=== PATIENT | female | born 1950 | race Caucasian/White ===

== ENCOUNTER 2019-09-22 13:08 | Observation (INO) | payer MEDICARE, MEDICAID ==
--- NOTE | 2019-09-22 13:38 | EDM.PDOC ---
ED HPI GENERAL MEDICAL PROBLEM - General Chief Complaint: General Stated Complaint: HIGH BLOOD SUGAR Time Seen by Provider: 09/22/19 13:20 Source of Information: Reports: Patient History Limitations: Reports: No Limitations - History of Present Illness INITIAL COMMENTS - FREE TEXT/NARRATIVE: Nigel comes into [facility] ED from [facility] after detection of elevated nonFBS 573 mg%. This was taken within an hour of eating after she had developed some shaking while smoking outside. There is a hx of polydipsia and polyuria over the past 4-5 months, and tingling in the extremities over the past month. Of interest, a FBS of 218 mg% was detected on a routine blood draw, but no intervention was determined. ED ROS GENERAL - Review of Systems Review Of Systems: Comprehensive ROS is negative, except as noted in HPI. ED EXAM, GENERAL - Physical Exam Exam: See Below Exam Limited By: No Limitations General Appearance: Alert, WD/WN, No Apparent Distress, Anxious, Obese Eye Exam: Bilateral Eye: EOMI, Normal Inspection, PERRL Ears: Normal External Exam Nose: Normal Inspection Throat/Mouth: Normal Inspection, Other (edentulous) Head: Normocephalic Neck: Normal Inspection, Supple, Non-Tender, Full Range of Motion Respiratory/Chest: No Respiratory Distress, No Accessory Muscle Use, Decreased Breath Sounds, Crackles, Wheezing, Prolonged Expiration Cardiovascular: Regular Rate, Rhythm, No Edema, No Murmur GI/Abdominal: Normal Bowel Sounds, Soft, Non-Tender, No Organomegaly, No Distention, No Mass (Female) Exam: Deferred Rectal (Female) Exam: Deferred Back Exam: Decreased Range of Motion Extremities: Normal Inspection, Normal Range of Motion, Non-Tender Neurological: Alert, Oriented, CN II-XII Intact, No Motor/Sensory Deficits Psychiatric: Normal Affect, Anxious Skin Exam: Warm, Dry, Intact, Normal Color, No Rash Lymphatic: No Adenopathy Course - Vital Signs Text/Narrative:: Following assessment, screening labs noted: CBC baseline; CMP noting BS 638 mg% , HgbA1c 8.8%, UA noting neg ketones, Glu 4+. Case was discussed with hospitalist, and she will be admitted to Observation for medical managemet. Last Recorded V/S: Last Vital Signs Temp 36.6 C 09/22/19 13:45 Pulse 100 09/22/19 13:45 Resp 18 09/22/19 13:45 BP 126/54 L 09/22/19 13:45 Pulse Ox 100 09/22/19 13:45 - Orders/Labs/Meds Orders: Active Orders 24 hr Category Date Time Status Blood Glucose Check, Bedside [RC] ONETIME Care 09/22/19 14:48 Active Labs: Laboratory Tests 09/22/19 09/22/19 09/22/19 Range/Units 13:45 13:45 13:45 WBC 7.9 (4.5-12.0) X10-3/uL RBC 4.40 (3.23-5.20) x10(6)uL Hgb 13.8 (11.5-15.5) g/dL Hct 41.9 (30.0-51.3) % MCV 95.2 (80-96) fL MCH 31.3 (27.7-33.6) pg MCHC 32.9 (32.2-35.4) g/dL RDW 11.7 (11.5-15.5) % Plt Count 191 (125-369) X10(3)uL MPV 9.1 (7.4-10.4) fL Neut % (Auto) 73.6 (46-82) % Lymph % (Auto) 18.1 (13-37) % [place] % (Auto) 5.9 (4-12) % Eos % (Auto) 1 (1.0-5.0) % Baso % (Auto) 1 (0-2) % Neut # (Auto) 5.8 (1.6-8.3) # Lymph # (Auto) 1.4 (0.6-5.0) # [place] # (Auto) 0.5 (0.0-1.3) # Eos # (Auto) 0.1 (0.0-0.8) # Baso # (Auto) 0.1 (0.0-0.2) # Sodium 130 L (135-145) mmol/L Potassium 4.7 (3.5-5.3) mmol/L Chloride 94 L (100-110) mmol/L Carbon Dioxide 28 (21-32) mmol/L BUN 22 H (7-18) mg/dL Creatinine 1.1 H (0.55-1.02) mg/dL Est Cr Clr Drug Dosing 41.62 mL/min Estimated GFR (MDRD) 50 L (>60) BUN/Creatinine Ratio 20.0 (9-20) Glucose 638 H* (80-116) mg/dL Hemoglobin A1c 8.8 H (<5.7) % Calcium 9.6 (8.6-10.2) mg/dL Total Bilirubin 0.4 (0.1-1.3) mg/dL AST 15 (5-25) IU/L ALT 24 (12-36) U/L Alkaline Phosphatase 170 H (56-112) IU/L Total Protein 7.9 (6.0-8.0) g/dL Albumin 3.6 (3.2-4.6) g/dL Globulin 4.3 g/dL Albumin/Globulin Ratio 0.8 Urine Color (YELLOW) Urine Appearance (CLEAR) Urine pH (5.0-6.5) Ur Specific [place] (1.010-1.025) Urine Protein (NEGATIVE) mg/dL Urine Glucose (UA) (NORMAL) mg/dL Urine Ketones (NEGATIVE) mg/dL Urine Occult Blood (NEGATIVE) Urine Nitrite (NEGATIVE) Urine Bilirubin (NEGATIVE) Urine Urobilinogen (NEGATIVE) mg/dL Ur Leukocyte Esterase (NEGATIVE) Urine RBC (0-5) Urine WBC (0-5) Ur Squamous Epith Cells (NS,R,O) Urine Bacteria (NS) 09/22/19 Range/Units 14:22 WBC (4.5-12.0) X10-3/uL RBC (3.23-5.20) x10(6)uL Hgb (11.5-15.5) g/dL Hct (30.0-51.3) % MCV (80-96) fL MCH (27.7-33.6) pg MCHC (32.2-35.4) g/dL RDW (11.5-15.5) % Plt Count (125-369) X10(3)uL MPV (7.4-10.4) fL Neut % (Auto) (46-82) % Lymph % (Auto) (13-37) % [place] % (Auto) (4-12) % Eos % (Auto) (1.0-5.0) % Baso % (Auto) (0-2) % Neut # (Auto) (1.6-8.3) # Lymph # (Auto) (0.6-5.0) # [place] # (Auto) (0.0-1.3) # Eos # (Auto) (0.0-0.8) # Baso # (Auto) (0.0-0.2) # Sodium (135-145) mmol/L Potassium (3.5-5.3) mmol/L Chloride (100-110) mmol/L Carbon Dioxide (21-32) mmol/L BUN (7-18) mg/dL Creatinine (0.55-1.02) mg/dL Est Cr Clr Drug Dosing mL/min Estimated GFR (MDRD) (>60) BUN/Creatinine Ratio (9-20) Glucose (80-116) mg/dL Hemoglobin A1c (<5.7) % Calcium (8.6-10.2) mg/dL Total Bilirubin (0.1-1.3) mg/dL AST (5-25) IU/L ALT (12-36) U/L Alkaline Phosphatase (56-112) IU/L Total Protein (6.0-8.0) g/dL Albumin (3.2-4.6) g/dL Globulin g/dL Albumin/Globulin Ratio Urine Color Yellow (YELLOW) Urine Appearance Clear (CLEAR) Urine pH 5.0 (5.0-6.5) Ur Specific [place] 1.010 (1.010-1.025) Urine Protein Negative (NEGATIVE) mg/dL Urine Glucose (UA) >1000 H (NORMAL) mg/dL Urine Ketones Negative (NEGATIVE) mg/dL Urine Occult Blood Negative (NEGATIVE) Urine Nitrite Negative (NEGATIVE) Urine Bilirubin Negative (NEGATIVE) Urine Urobilinogen Normal (NEGATIVE) mg/dL Ur Leukocyte Esterase Negative (NEGATIVE) Urine RBC 0-5 (0-5) Urine WBC 0-5 (0-5) Ur Squamous Epith Cells Occasional (NS,R,O) Urine Bacteria Rare H (NS) Departure - Departure Time of Disposition: 14:55 Disposition: Refer to Observation Condition: Fair Clinical Impression: Type 2 diabetes mellitus Qualifiers: Diabetes mellitus long goods drier insulin use: without long goods drier use Diabetes mellitus complication status: with hyperglycemia Qualified Code(s): E11.65 - Type 2 diabetes mellitus with hyperglycemia - Discharge Information *PRESCRIPTION DRUG MONITORING PROGRAM REVIEWED*: Not Applicable *COPY OF PRESCRIPTION DRUG MONITORING REPORT IN PATIENT [place]: Not Applicable Referrals: Kirstin,Benita, PA-C [Primary Care Provider] - Forms: ED Department Discharge Sepsis Event Note - Focused Exam Vital Signs: Vital Signs Temp Pulse Resp BP Pulse Ox 09/22/19 13:45 36.6 C 100 18 126/54 L 100 Date Exam was Performed: 09/22/19 Time Exam was Performed: 14:52 - Problem List & Annotations (1) Type 2 diabetes mellitus SNOMED Code(s): 22778345 Code(s): E11.9 - TYPE 2 DIABETES MELLITUS WITHOUT COMPLICATIONS Status: Acute Current Visit: Yes Annotation/Comment:: Admit to Observation, hospitalist to see. Qualifiers: Diabetes mellitus alf insulin use: without alf use Diabetes mellitus complication status: with hyperglycemia Qualified Code(s): E11.65 - Type 2 diabetes mellitus with hyperglycemia - Problem List Review Problem List Initiated/Reviewed/Updated: Yes - My Orders Last 24 Hours: My Active Orders 09/22/19 14:48 Blood Glucose Check, Bedside [RC] ONETIME - Assessment/Plan Last 24 Hours: My Active Orders 09/22/19 14:48 Blood Glucose Check, Bedside [RC] ONETIME Plan: Follow up with PCP.
[2019-09-22 14:07] LABS: HEMOGLOBIN A1C 8.8 % (<5.7)
[2019-09-22] MEDS ORDERED: Sodium Chloride 0.9% 1,000 ML IV SCH ×2 (15:00→20:00)
[2019-09-22] MEDS ORDERED: Insulin Regular, Human 100 Units/ML 3 ML Vial IV ONE (15:02)
[2019-09-22] MEDS: Sodium Chloride 0.9% 10 ML Syringe FLUSH PRN ×2 (16:00→16:13)
--- NOTE | 2019-09-22 16:14 | CR ---
INDICATION: COPD. CHEST, ONE VIEW: An AP upright view of the chest was obtained 09/22/19 and compared with 02/02/19 [facility] Image. Fusion is again noted at the thoracolumbar spine with rods and pedicle screws appearing intact. The heart appeared normal in size. The aorta is tortuous with calcification in the arch. No consolidating pneumonia or effusion was seen. Evidence of exogenous obesity is noted. Mild degree of flattening of the diaphragm on the left is noted. IMPRESSION: No acute process. MTDD
[2019-09-22] MEDS: Albuterol/Ipratropium 3.0-0.5 MG/3 ML Neb Soln NEB SCH ×2 (16:25→21:57)
[2019-09-22] MEDS ORDERED: LOPERAMIDE HCL 2 MG PO PRN (17:11)
[2019-09-22] MEDS ORDERED: MAGNESIUM HYDROXIDE 400 MG/5 ML PO PRN (17:11)
[2019-09-22] MEDS ORDERED: [UNRECOGNIZED DRUG - OTHER] PO PRN (17:11)
[2019-09-22] MEDS ORDERED: GUAIFENESIN 100 MG/5 ML PO PRN (17:11)
[2019-09-22] MEDS ORDERED: Acetaminophen 325 MG Tab PO PRN (17:11)
[2019-09-22] MEDS ORDERED: BISACODYL 10 MG RECTAL PRN (17:11)
[2019-09-22] MEDS ORDERED: TRIAMCINOLONE ACETONIDE 0.1% TOP PRN (17:11)
[2019-09-22] MEDS ORDERED: Albuterol 8 GM Inhaler*PT OWN MED INH PRN (17:11)
--- NOTE | 2019-09-22 17:27 | PCM.HP.2 ---
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 She has some labs then over week ago and her blood sugars 285. This the first time her sugars ever been up and nobody called her back to follow-up. She was getting an appointment with her nurse practitioner but an upcoming here. They checked her blood sugar was flexed over 680 and she was sent here. She denies fevers, chills, chest pain. She is a smoker and she is she has some wheezing some coughing. 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 Right Lower Leg Pain Score (Numeric/FACES): 8 - Related Data Home Medications: Home Meds Acetaminophen 1,000 mg PO TID 09/22/19 [History] Acetaminophen 650 mg PO Q4H PRN 09/22/19 [History] Albuterol Sulfate [Albuterol Sulfate Hfa] 1 puff IH Q4H PRN 09/22/19 [History] Aspirin 81 mg PO DAILY 09/22/19 [History] Baclofen 15 mg PO TID 09/22/19 [History] Bisacodyl [Laxative Suppository] 10 mg RC Q3D PRN 09/22/19 [History] Celecoxib [CeleBREX] 100 mg PO DAILY 09/22/19 [History] Cholecalciferol (Vitamin D3) [Vitamin D3] 2,000 units PO DAILY 09/22/19 [History ] DULoxetine [Cymbalta] 60 mg PO BID 09/22/19 [History] Doxycycline Hyclate 100 mg PO BID 09/22/19 [History] Fluticasone Propionate [Flonase Allergy Relief] 1 spray NASBOTH BID 09/22/19 [ History] Gabapentin [Neurontin] 800 mg PO TID 09/22/19 [History] Loperamide HCl [Imodium A-D] 2 mg PO ASDIRECTED PRN 09/22/19 [History] Losartan [Cozaar] 100 mg PO DAILY 09/22/19 [History] Mag Hydrox/Aluminum Hyd/Simeth [Mylanta Maximum Strength Liq] 10 ml PO QID PRN 09/22/19 [History] Magnesium Hydroxide [Milk of Magnesia] 30 ml PO DAILY PRN 09/22/19 [History] Mv-Mn/Folic AC/Calcium/Vit K1 [Women's 50 Plus Multivit Tab] 1 each PO DAILY 07/08 [History] Nystatin 1 applic TOP TID PRN 09/22/19 [History] Omeprazole 20 mg PO 1800 09/22/19 [History] Sennosides/Docusate Sodium [Senna-S] 1 tab PO BID 09/22/19 [History] Sofosbuvir/Velpatasvir [Sofosbuvir-Velpatasvir 400-100] 1 each PO DAILY [History] Triamcinolone Acetonide [Triamcinolone Acetonide 0.1% Crm] 1 applic TOP TID PRN 09/22/19 [History] amLODIPine Besylate [Amlodipine Besylate] 10 mg PO DAILY 09/22/19 [History] cloNIDine HCL [Clonidine HCl] 0.2 mg PO BID 09/22/19 [History] guaiFENesin 200 mg PO Q4H PRN 09/22/19 [History] Past Medical History Other HEENT History: Age related cataracts Cardiovascular History: Reports: Hypertension Respiratory History: Reports: Asthma Gastrointestinal History: Reports: Hepatitis Other Gastrointestinal History: Hep C Genitourinary History: Reports: Other (See Below) Other Genitourinary History: Frequency Musculoskeletal History: Reports: Other (See Below) Other Musculoskeletal History: SPINAL CORD INJURY 2018 Dermatologic History: Reports: Other (See Below) Other Dermatologic History: States got 2 degree sunburn 4 weeks ago - Infectious Disease History Infectious Disease History: Reports: Shingles Social & Family History - Family History Family Medical History: Noncontributory - Tobacco Use Smoking Status *Q: Current Every Day Smoker Years of Tobacco use: 50 Packs/Tins Daily: 1 Second Hand Smoke Exposure: Yes - Caffeine Use Caffeine Use: Reports: Coffee, Soda - Recreational Drug Use Recreational Drug Use: No H&P Review of Systems - Review of Systems: Review Of Systems: See Below General: Reports: No Symptoms HEENT: Reports: Visual Changes Pulmonary: Reports: No Symptoms Cardiovascular: Reports: No Symptoms Gastrointestinal: Reports: No Symptoms Genitourinary: Reports: No Symptoms Musculoskeletal: Reports: Other (No acute symptoms) Skin: Reports: No Symptoms Psychiatric: Reports: No Symptoms Neurological: Reports: Numbness Hematologic/Lymphatic: Reports: No Symptoms Immunologic: Reports: No Symptoms Exam - Exam Exam: See Below - Vital Signs Vital Signs: Last Vital Signs Temp 98.3 F 09/22/19 15:40 Pulse 97 09/22/19 15:40 Resp 20 09/22/19 15:40 BP 173/87 H 09/22/19 15:40 Pulse Ox 97 09/22/19 15:40 Weight: 221 lb 9.6 oz - Exam General: Alert, Oriented, Cooperative HEENT: Hearing Intact, Mucosa Moist & Blyn, TMs Clear Neck: Supple, Trachea Midline Lungs: Clear to Auscultation, Normal Respiratory Effort Cardiovascular: Regular Rate, Regular Rhythm, Normal S1 GI/Abdominal Exam: Normal Bowel Sounds, Non-Tender, No Distention Extremities: No Pedal Edema Neuro Extensive - Mental Status: Alert, Oriented x3, Normal Mood/Affect, Normal Cognition, Memory Intact Neuro Extensive - Motor, Sensory, Reflexes: No: Normal Gait Psychiatric: Alert, Normal Affect, Normal Mood - Patient Data Lab Results Last 24 hrs: Laboratory Results - last 24 hr 09/22/19 09/22/19 09/22/19 Range/Units 13:45 13:45 13:45 WBC 7.9 (4.5-12.0) X10-3/uL RBC 4.40 (3.23-5.20) x10(6)uL Hgb 13.8 (11.5-15.5) g/dL Hct 41.9 (30.0-51.3) % MCV 95.2 (80-96) fL MCH 31.3 (27.7-33.6) pg MCHC 32.9 (32.2-35.4) g/dL RDW 11.7 (11.5-15.5) % Plt Count 191 (125-369) X10(3)uL MPV 9.1 (7.4-10.4) fL Neut % (Auto) 73.6 (46-82) % Lymph % (Auto) 18.1 (13-37) % [place] % (Auto) 5.9 (4-12) % Eos % (Auto) 1 (1.0-5.0) % Baso % (Auto) 1 (0-2) % Neut # (Auto) 5.8 (1.6-8.3) # Lymph # (Auto) 1.4 (0.6-5.0) # [place] # (Auto) 0.5 (0.0-1.3) # Eos # (Auto) 0.1 (0.0-0.8) # Baso # (Auto) 0.1 (0.0-0.2) # Sodium 130 L (135-145) mmol/L Potassium 4.7 (3.5-5.3) mmol/L Chloride 94 L (100-110) mmol/L Carbon Dioxide 28 (21-32) mmol/L BUN 22 H (7-18) mg/dL Creatinine 1.1 H (0.55-1.02) mg/dL Est Cr Clr Drug Dosing 41.62 mL/min Estimated GFR (MDRD) 50 L (>60) BUN/Creatinine Ratio 20.0 (9-20) Glucose 638 H* (80-116) mg/dL Hemoglobin A1c 8.8 H (<5.7) % Calcium 9.6 (8.6-10.2) mg/dL Total Bilirubin 0.4 (0.1-1.3) mg/dL AST 15 (5-25) IU/L ALT 24 (12-36) U/L Alkaline Phosphatase 170 H (56-112) IU/L Total Protein 7.9 (6.0-8.0) g/dL Albumin 3.6 (3.2-4.6) g/dL Globulin 4.3 g/dL Albumin/Globulin Ratio 0.8 Urine Color (YELLOW) Urine Appearance (CLEAR) Urine pH (5.0-6.5) Ur Specific Bells (1.010-1.025) Urine Protein (NEGATIVE) mg/dL Urine Glucose (UA) (NORMAL) mg/dL Urine Ketones (NEGATIVE) mg/dL Urine Occult Blood (NEGATIVE) Urine Nitrite (NEGATIVE) Urine Bilirubin (NEGATIVE) Urine Urobilinogen (NEGATIVE) mg/dL Ur Leukocyte Esterase (NEGATIVE) Urine RBC (0-5) Urine WBC (0-5) Ur Squamous Epith Cells (NS,R,O) Urine Bacteria (NS) 09/22/19 Range/Units 14:22 WBC (4.5-12.0) X10-3/uL RBC (3.23-5.20) x10(6)uL Hgb (11.5-15.5) g/dL Hct (30.0-51.3) % MCV (80-96) fL MCH (27.7-33.6) pg MCHC (32.2-35.4) g/dL RDW (11.5-15.5) % Plt Count (125-369) X10(3)uL MPV (7.4-10.4) fL Neut % (Auto) (46-82) % Lymph % (Auto) (13-37) % [place] % (Auto) (4-12) % Eos % (Auto) (1.0-5.0) % Baso % (Auto) (0-2) % Neut # (Auto) (1.6-8.3) # Lymph # (Auto) (0.6-5.0) # [place] # (Auto) (0.0-1.3) # Eos # (Auto) (0.0-0.8) # Baso # (Auto) (0.0-0.2) # Sodium (135-145) mmol/L Potassium (3.5-5.3) mmol/L Chloride (100-110) mmol/L Carbon Dioxide (21-32) mmol/L BUN (7-18) mg/dL Creatinine (0.55-1.02) mg/dL Est Cr Clr Drug Dosing mL/min Estimated GFR (MDRD) (>60) BUN/Creatinine Ratio (9-20) Glucose (80-116) mg/dL Hemoglobin A1c (<5.7) % Calcium (8.6-10.2) mg/dL Total Bilirubin (0.1-1.3) mg/dL AST (5-25) IU/L ALT (12-36) U/L Alkaline Phosphatase (56-112) IU/L Total Protein (6.0-8.0) g/dL Albumin (3.2-4.6) g/dL Globulin g/dL Albumin/Globulin Ratio Urine Color Yellow (YELLOW) Urine Appearance Clear (CLEAR) Urine pH 5.0 (5.0-6.5) Ur Specific Bells 1.010 (1.010-1.025) Urine Protein Negative (NEGATIVE) mg/dL Urine Glucose (UA) >1000 H (NORMAL) mg/dL Urine Ketones Negative (NEGATIVE) mg/dL Urine Occult Blood Negative (NEGATIVE) Urine Nitrite Negative (NEGATIVE) Urine Bilirubin Negative (NEGATIVE) Urine Urobilinogen Normal (NEGATIVE) mg/dL Ur Leukocyte Esterase Negative (NEGATIVE) Urine RBC 0-5 (0-5) Urine WBC 0-5 (0-5) Ur Squamous Epith Cells Occasional (NS,R,O) Urine Bacteria Rare H (NS) Result Diagrams: 09/22/19 13:45 09/22/19 13:45 Sepsis Event Note - Evaluation Sepsis Screening Result: No Definite Risk - Focused Exam Vital Signs: Vital Signs Temp Pulse Resp BP Pulse Ox Pulse Ox 09/22/19 15:40 98.3 F 97 20 173/87 H 97 09/22/19 14:58 100 09/22/19 14:52 97.9 F 100 18 126/54 L 100 09/22/19 13:45 97.9 F 100 18 126/54 L 100 Date Exam was Performed: 09/22/19 Time Exam was Performed: 17:21 - Problem List (1) Hyperglycemia SNOMED Code(s): 20371600 ICD Code: R73.9 - HYPERGLYCEMIA, UNSPECIFIED Status: Acute Current Visit : Yes (2) Type 2 diabetes mellitus SNOMED Code(s): 53710077 ICD Code: E11.9 - TYPE 2 DIABETES MELLITUS WITHOUT COMPLICATIONS Status: Acute Current Visit: Yes Problem Details: Admit to Observation, hospitalist to see. Qualifiers: Diabetes mellitus welding specialist insulin use: without welding specialist use Diabetes mellitus complication status: with hyperglycemia Qualified Code(s): E11.65 - Type 2 diabetes mellitus with hyperglycemia (3) Smoking SNOMED Code(s): 04356577 ICD Code: F17.200 - NICOTINE DEPENDENCE, UNSPECIFIED, UNCOMPLICATED Status : Acute Current Visit: Yes (4) Bronchitis SNOMED Code(s): 25475696 ICD Code: J40 - BRONCHITIS, NOT SPECIFIED ACUTE OR CHRONIC Status: Acute Current Visit: Yes (5) COPD (chronic obstructive pulmonary disease) SNOMED Code(s): 93801259 ICD Code: J44.9 - CHRONIC OBSTRUCTIVE PULMONARY DISEASE, UNSPECIFIED Status : Acute Current Visit: Yes (6) Paralysis SNOMED Code(s): 99204211 ICD Code: G83.9 - PARALYTIC SYNDROME, UNSPECIFIED Status: Acute Current Visit: Yes (7) Palliative care status SNOMED Code(s): 870619027 ICD Code: Z51.5 - ENCOUNTER FOR PALLIATIVE CARE Status: Acute Current Visit: Yes Problem List Initiated/Reviewed/Updated: Yes Orders Last 24hrs: Active Orders 24 hr Category Date Time Status Patient Status [ADT] Routine ADT 09/22/19 14:58 Active Bedrest Bathroom Privileges [RC] ASDIRECTED Care 09/22/19 14:58 Active Blood Glucose Check, Bedside [RC] ONETIME Care 09/22/19 14:48 Active Blood Glucose Check, Bedside [RC] QIDACANDBED Care 09/22/19 14:58 Active Height and Weight [RC] UPON Care 09/22/19 14:58 Active Intake and Output [RC] QSHIFT Care 09/22/19 14:59 Active May Shower [RC] ASDIRECTED Care 09/22/19 14:58 Active Oxygen Therapy [RC] PRN Care 09/22/19 14:58 Active RT Aerosol Therapy [RC] ASDIRECTED Care 09/22/19 15:01 Active Up to Chair [RC] ASDIRECTED Care 09/22/19 14:58 Active VTE/DVT Education [RC] Per Unit Routine Care 09/22/19 14:58 Active Vital Signs [RC] Q4H Care 09/22/19 14:58 Active Consult to Primary Mill Roller [CONS] Routine Cons 09/22/19 14:58 Active Consistent Carbohydrate Diet [DIET] Diet 09/22/19 Dinner Ordered Acetaminophen [Tylenol Extra Strength] Med 09/22/19 21:00 Ordered 1,000 mg PO TID Acetaminophen [Tylenol] Med 09/22/19 17:11 Ordered 650 mg PO Q4H PRN Albuterol [Ventolin HFA] Med 09/22/19 17:11 Ordered 1 puff INH Q4H PRN Albuterol/Ipratropium [DuoNeb 3.0-0.5 MG/3 ML] Med 09/22/19 16:00 Active 3 ml NEB QIDRT Aspirin Med 09/23/19 09:00 Ordered 81 mg PO DAILY Azithromycin [Zithromax] Med 09/22/19 17:30 Ordered 250 mg PO DAILY Baclofen [Lioresal] Med 09/22/19 21:00 Ordered 15 mg PO TID Celecoxib [CeleBREX] Med 09/23/19 09:00 Ordered 100 mg PO DAILY Cholecalciferol (Vitamin D3) [Vitamin D3] Med 09/23/19 09:00 Ordered 2,000 units PO DAILY DULoxetine [Cymbalta] Med 09/22/19 21:00 Ordered 60 mg PO BID Docusate Sodium/Sennosides [Senna Plus] Med 09/22/19 21:00 Ordered 1 tab PO BID Doxycycline [Vibra-Tabs] Med 09/22/19 21:00 Ordered 100 mg PO BID Enoxaparin [Lovenox] Med 09/22/19 17:15 Ordered 40 mg SUBCUT Q24H Fluticasone Propionate [Flonase Allergy Relief] Med 09/22/19 21:00 Ordered 1 spray NASBOTH BID Gabapentin [Neurontin] Med 09/22/19 21:00 Ordered 800 mg PO TID Insulin Glarg,Human.Rec.Analog [LantUS Solostar] Med 09/22/19 17:30 Ordered 20 units SUBCUT DAILY Insulin Lispro [HumaLOG] Med 09/22/19 18:00 Ordered See Protocol SUBCUT TIDMEALS Loperamide HCl [Imodium A-D] Med 09/22/19 17:11 Ordered 2 mg PO ASDIRECTED PRN Losartan [Cozaar] Med 09/23/19 09:00 Ordered 100 mg PO DAILY Mag Hydrox/Aluminum Hyd/Simeth [Mylanta Maximum Med 09/22/19 17:11 Ordered Strength Liq] 10 ml PO QID PRN Magnesium Hydroxide [Milk of Magnesia] Med 09/22/19 17:11 Ordered 30 ml PO DAILY PRN Mv-Mn/Folic AC/Calcium/Vit K1 [Women's 50 Plus Multivit Med 09/23/19 09:00 Ordered Tab] 1 each PO DAILY Nicotine [Habitrol] Med 09/22/19 17:30 Ordered 21 mg TRDERM DAILY Nystatin [Nystatin] Med 09/22/19 17:11 Ordered 1 applic TOP TID PRN Omeprazole [Omeprazole] Med 09/22/19 18:00 Ordered 20 mg PO 1800 Sodium Chloride 0.9% [Normal Saline] 1,000 ml Med 09/22/19 15:00 Active IV ASDIRECTED Sodium Chloride 0.9% [Saline Flush] Med 09/22/19 14:58 Active 10 ml FLUSH ASDIRECTED PRN Sofosbuvir/Velpatasvir [Sofosbuvir-Velpatasvir 400-100] Med 09/23/19 09:00 Ordered 1 each PO DAILY Triamcinolone Acetonide [Triamcinolone Acetonide 0.1% Med 09/22/19 17:11 Ordered Crm] 1 applic TOP TID PRN amLODIPine [Norvasc] Med 09/23/19 09:00 Ordered 10 mg PO DAILY bisacodyL [Dulcolax] Med 09/22/19 17:11 Ordered 10 mg RECTAL Q3D PRN cloNIDine HCL [Clonidine HCl] Med 09/22/19 21:00 Ordered 0.2 mg PO BID guaiFENesin [Robitussin] Med 09/22/19 17:11 Ordered 200 mg PO Q4H PRN traMADol [Ultram] Med 09/22/19 17:21 Ordered 50 mg PO Q6H PRN Peripheral IV Insertion Adult [OM.PC] Routine Oth 09/22/19 14:58 Ordered Resuscitation Status Routine Resus Stat 09/22/19 14:58 Ordered Medication Orders Acetaminophen (Tylenol) 650 mg PO Q4H PRN PRN Reason: FEVER/PAIN Acetaminophen (Tylenol Extra Strength) 1,000 mg PO TID LUBNA Albuterol (Ventolin Hfa) gm INH Q4H PRN PRN Reason: SHORTNESS OF BREATH Albuterol/Ipratropium (Duoneb 3.0-0.5 Mg/3 Ml) 3 ml NEB QIDRT COUNT INCLUDES THE [facility] Last Admin: 09/22/19 16:25 Dose: 3 ml Amlodipine Besylate (Norvasc) 10 mg PO DAILY COUNT INCLUDES THE [facility] Aspirin (Aspirin) 81 mg PO DAILY COUNT INCLUDES THE [facility] Azithromycin (Zithromax) 250 mg PO DAILY COUNT INCLUDES THE [facility] Stop: 09/27/19 09:01 Baclofen (Lioresal) 15 mg PO TID COUNT INCLUDES THE [facility] Bisacodyl (Dulcolax) 10 mg RECTAL Q3D PRN PRN Reason: Constipation Celecoxib (Celebrex) 100 mg PO DAILY COUNT INCLUDES THE [facility] Doxycycline Hyclate (Vibra-Tabs) 100 mg PO BID COUNT INCLUDES THE [facility] Duloxetine HCl (Cymbalta) 60 mg PO BID COUNT INCLUDES THE [facility] Enoxaparin Sodium (Lovenox) 40 mg SUBCUT Q24H LUBNA Guaifenesin (Robitussin) 200 mg PO Q4H PRN PRN Reason: Cough Sodium Chloride (Normal Saline) 1,000 mls @ 250 mls/hr IV ASDIRECTED LUBNA Last Admin: 09/22/19 16:00 Dose: 250 mls/hr Insulin Glargine (Lantus Solostar) 20 units SUBCUT DAILY COUNT INCLUDES THE [facility] Insulin Human Lispro (Humalog) 0 unit SUBCUT TIDMEALS LUBNA; Protocol Losartan Potassium (Cozaar) 100 mg PO DAILY LUBNA Magnesium Hydroxide (Milk Of Magnesia) 30 ml PO DAILY PRN PRN Reason: Constipation Nicotine (Habitrol) 21 mg TRDERM DAILY COUNT INCLUDES THE [facility] Non-Formulary Medication (Cholecalciferol (Vitamin D3) [Vitamin D3]) 2,000 units PO DAILY COUNT INCLUDES THE [facility] Non-Formulary Medication (Clonidine Hcl [Clonidine Hcl]) 0.2 mg PO BID LUBNA Non-Formulary Medication (Fluticasone Propionate [Flonase Allergy Relief]) 1 spray NASBOTH BID COUNT INCLUDES THE [facility] Non-Formulary Medication (Gabapentin [Neurontin]) 800 mg PO TID LUBNA Non-Formulary Medication (Loperamide Hcl [Imodium A-D]) 2 mg PO ASDIRECTED PRN PRN Reason: Diarrhea Non-Formulary Medication (Mag Hydrox/Aluminum Hyd/Simeth [Mylanta Maximum Strength Liq]) 10 ml PO QID PRN PRN Reason: Indigestion Non-Formulary Medication (Mv-Mn/Folic Ac/Calcium/Vit K1 [Women's 50 Plus Multivit Tab]) 1 each PO DAILY LUBNA Non-Formulary Medication (Nystatin [Nystatin]) 1 applic TOP TID PRN PRN Reason: Rash Non-Formulary Medication (Omeprazole [Omeprazole]) 20 mg PO 1800 LUBNA Non-Formulary Medication (Sofosbuvir/Velpatasvir [Sofosbuvir-Velpatasvir 400-100 ]) 1 each PO DAILY LUBNA Senna/Docusate Sodium (Senna Plus) 1 tab PO BID COUNT INCLUDES THE [facility] Sodium Chloride (Saline Flush) 10 ml FLUSH ASDIRECTED PRN PRN Reason: Keep Vein Open Last Admin: 09/22/19 16:13 Dose: 10 ml Admin: 09/22/19 16:00 Dose: 10 ml Tramadol HCl (Ultram) 50 mg PO Q6H PRN PRN Reason: Pain Triamcinolone Acetonide (Triamcinolone Acetonide 0.1% Crm) gm TOP TID PRN PRN Reason: Rash Assessment/Plan Comment:: 1. Admit for observation care for glycemic control. New onset diabetic is severely high Blood sugars 2. Full code-patient has no one to speak for her. She says she wants a try at CPR and if it doesn't work that she was withdraw. 3. Lovenox for VTE prophylaxis 4. Diabetic diet 5. Lovenox 20 units a day and Humalog sliding scale with checking blood sugars 3 times a day and as needed 6. Up in chair 7. Recheck labs in the a.m. - Mortality Measure Prognosis:: Good
[2019-09-22] MEDS ORDERED: Nicotine 21 MG/24 Hr Patch TRDERM SCH (17:30)
[2019-09-22] MEDS ORDERED: Azithromycin 250 MG Tab PO SCH (17:30)
[2019-09-22] MEDS ORDERED: Azithromycin 250 MG Tab PO ONE (17:45)
[2019-09-22] MEDS ORDERED: OMEPRAZOLE 20 MG PO SCH (18:00)
[2019-09-22] MEDS ORDERED: Insulin Lispro 100 Unit/ML 3 ML KwikPen SUBCUT SCH (18:00)
[2019-09-22] MEDS ORDERED: Enoxaparin 40 MG/0.4 ML Syringe SUBCUT SCH (18:00)
[2019-09-22] MEDS ORDERED: Insulin Lispro 100 Unit/ML 3 ML KwikPen SUBCUT ONE (18:06)
[2019-09-22] MEDS: traMADol 50 MG Tab PO PRN (18:09)
[2019-09-22] MEDS: Insulin Glargine,Human Rec. Analog 100 Units/ML 3 ML Pen SUBCUT SCH (18:10)
[2019-09-22] MEDS: Insulin Lispro 100 Unit/ML 3 ML KwikPen SUBCUT SCH ×2 (18:13→22:08)
[2019-09-22] MEDS: Sodium Chloride 0.9% 1,000 ML IV SCH (20:25)
[2019-09-22] MEDS: DULoxetine 60 MG Cap*PT OWN MED PO SCH (21:42)
[2019-09-22] MEDS: [UNRECOGNIZED DRUG - REMARK] NASBOTH SCH (21:43)
[2019-09-22] MEDS: SENNOSIDES PO SCH (21:44)
[2019-09-22] MEDS: DOCUSATE SODIUM PO SCH (21:44)
[2019-09-22] MEDS: ACETAMINOPHEN 500 MG PO SCH (21:45)
[2019-09-22] MEDS: DOXYCYCLINE 100 MG PO SCH (21:46)
[2019-09-22] MEDS: BACLOFEN 10 MG PO SCH (21:47)
[2019-09-22] MEDS ORDERED: guaiFENesin 100 MG/5 ML Soln 5 ML UD Cup PO PRN ×2 (22:25→23:00)
[2019-09-23] MEDS: Insulin Lispro 100 Unit/ML 3 ML KwikPen SUBCUT SCH ×4 (02:17→13:59)
[2019-09-23] MEDS: Sodium Chloride 0.9% 1,000 ML IV SCH (04:52)
[2019-09-23] MEDS: traMADol 50 MG Tab PO PRN ×2 (05:49→12:34)
[2019-09-23] MEDS: Albuterol/Ipratropium 3.0-0.5 MG/3 ML Neb Soln NEB SCH ×2 (06:03→12:36)
--- NOTE | 2019-09-23 08:35 | PCM.PN ---
- General Info Date of Service: 09/23/19 Admission Dx/Problem (Free Text): Patient states she still little thirstier has a dry mouth. No polydipsia, fevers , chills, chest pain, shortness of breath. She has some back pain but it's chronic. Cough is improved - Patient Data Vitals - Most Recent: Last Vital Signs Temp 97.8 F 09/23/19 04:00 Pulse 92 09/23/19 06:03 Resp 09/23/19 04:00 BP 146/68 H 09/23/19 04:00 Pulse Ox 96 09/23/19 04:00 Weight - Most Recent: 221 lb 9.6 oz I&O - Last 24 Hours: Intake & Output 09/22/19 09/23/19 09/23/19 22:59 06:59 14:59 Intake Total 400 2044 Balance 400 2044 Lab Results Last 24 Hours: Laboratory Results - last 24 hr 09/22/19 09/22/19 09/22/19 Range/Units 13:45 13:45 13:45 WBC 7.9 (4.5-12.0) X10-3/uL RBC 4.40 (3.23-5.20) x10(6)uL Hgb 13.8 (11.5-15.5) g/dL Hct 41.9 (30.0-51.3) % MCV 95.2 (80-96) fL MCH 31.3 (27.7-33.6) pg MCHC 32.9 (32.2-35.4) g/dL RDW 11.7 (11.5-15.5) % Plt Count 191 (125-369) X10(3)uL MPV 9.1 (7.4-10.4) fL Neut % (Auto) 73.6 (46-82) % Lymph % (Auto) 18.1 (13-37) % Catron % (Auto) 5.9 (4-12) % Eos % (Auto) 1 (1.0-5.0) % Baso % (Auto) 1 (0-2) % Neut # (Auto) 5.8 (1.6-8.3) # Lymph # (Auto) 1.4 (0.6-5.0) # Catron # (Auto) 0.5 (0.0-1.3) # Eos # (Auto) 0.1 (0.0-0.8) # Baso # (Auto) 0.1 (0.0-0.2) # Sodium 130 L (135-145) mmol/L Potassium 4.7 (3.5-5.3) mmol/L Chloride 94 L (100-110) mmol/L Carbon Dioxide 28 (21-32) mmol/L BUN 22 H (7-18) mg/dL Creatinine 1.1 H (0.55-1.02) mg/dL Est Cr Clr Drug Dosing 41.62 mL/min Estimated GFR (MDRD) 50 L (>60) BUN/Creatinine Ratio 20.0 (9-20) Glucose 638 H* (80-116) mg/dL POC Glucose (80-116) mg/dL Hemoglobin A1c 8.8 H (<5.7) % Calcium 9.6 (8.6-10.2) mg/dL Total Bilirubin 0.4 (0.1-1.3) mg/dL AST 15 (5-25) IU/L ALT 24 (12-36) U/L Alkaline Phosphatase 170 H (56-112) IU/L Total Protein 7.9 (6.0-8.0) g/dL Albumin 3.6 (3.2-4.6) g/dL Globulin 4.3 g/dL Albumin/Globulin Ratio 0.8 Triglycerides (15-150) mg/dL Cholesterol (50-200) mg/dL LDL Cholesterol Direct (60-130) mg/dL HDL Cholesterol (40-75) mg/dL Cholesterol/HDL Ratio (0-5) Urine Color (YELLOW) Urine Appearance (CLEAR) Urine pH (5.0-6.5) Ur Specific [place] (1.010-1.025) Urine Protein (NEGATIVE) mg/dL Urine Glucose (UA) (NORMAL) mg/dL Urine Ketones (NEGATIVE) mg/dL Urine Occult Blood (NEGATIVE) Urine Nitrite (NEGATIVE) Urine Bilirubin (NEGATIVE) Urine Urobilinogen (NEGATIVE) mg/dL Ur Leukocyte Esterase (NEGATIVE) Urine RBC (0-5) Urine WBC (0-5) Ur Squamous Epith Cells (NS,R,O) Urine Bacteria (NS) 09/22/19 09/22/19 09/22/19 Range/Units 14:22 17:40 22:04 WBC (4.5-12.0) X10-3/uL RBC (3.23-5.20) x10(6)uL Hgb (11.5-15.5) g/dL Hct (30.0-51.3) % MCV (80-96) fL MCH (27.7-33.6) pg MCHC (32.2-35.4) g/dL RDW (11.5-15.5) % Plt Count (125-369) X10(3)uL MPV (7.4-10.4) fL Neut % (Auto) (46-82) % Lymph % (Auto) (13-37) % Catron % (Auto) (4-12) % Eos % (Auto) (1.0-5.0) % Baso % (Auto) (0-2) % Neut # (Auto) (1.6-8.3) # Lymph # (Auto) (0.6-5.0) # Catron # (Auto) (0.0-1.3) # Eos # (Auto) (0.0-0.8) # Baso # (Auto) (0.0-0.2) # Sodium (135-145) mmol/L Potassium (3.5-5.3) mmol/L Chloride (100-110) mmol/L Carbon Dioxide (21-32) mmol/L BUN (7-18) mg/dL Creatinine (0.55-1.02) mg/dL Est Cr Clr Drug Dosing mL/min Estimated GFR (MDRD) (>60) BUN/Creatinine Ratio (9-20) Glucose (80-116) mg/dL POC Glucose 314 H 291 H (80-116) mg/dL Hemoglobin A1c (<5.7) % Calcium (8.6-10.2) mg/dL Total Bilirubin (0.1-1.3) mg/dL AST (5-25) IU/L ALT (12-36) U/L Alkaline Phosphatase (56-112) IU/L Total Protein (6.0-8.0) g/dL Albumin (3.2-4.6) g/dL Globulin g/dL Albumin/Globulin Ratio Triglycerides (15-150) mg/dL Cholesterol (50-200) mg/dL LDL Cholesterol Direct (60-130) mg/dL HDL Cholesterol (40-75) mg/dL Cholesterol/HDL Ratio (0-5) Urine Color Yellow (YELLOW) Urine Appearance Clear (CLEAR) Urine pH 5.0 (5.0-6.5) Ur Specific [place] 1.010 (1.010-1.025) Urine Protein Negative (NEGATIVE) mg/dL Urine Glucose (UA) >1000 H (NORMAL) mg/dL Urine Ketones Negative (NEGATIVE) mg/dL Urine Occult Blood Negative (NEGATIVE) Urine Nitrite Negative (NEGATIVE) Urine Bilirubin Negative (NEGATIVE) Urine Urobilinogen Normal (NEGATIVE) mg/dL Ur Leukocyte Esterase Negative (NEGATIVE) Urine RBC 0-5 (0-5) Urine WBC 0-5 (0-5) Ur Squamous Epith Cells Occasional (NS,R,O) Urine Bacteria Rare H (NS) 09/23/19 09/23/19 Range/Units 02:12 06:35 WBC (4.5-12.0) X10-3/uL RBC (3.23-5.20) x10(6)uL Hgb (11.5-15.5) g/dL Hct (30.0-51.3) % MCV (80-96) fL MCH (27.7-33.6) pg MCHC (32.2-35.4) g/dL RDW (11.5-15.5) % Plt Count (125-369) X10(3)uL MPV (7.4-10.4) fL Neut % (Auto) (46-82) % Lymph % (Auto) (13-37) % Catron % (Auto) (4-12) % Eos % (Auto) (1.0-5.0) % Baso % (Auto) (0-2) % Neut # (Auto) (1.6-8.3) # Lymph # (Auto) (0.6-5.0) # Catron # (Auto) (0.0-1.3) # Eos # (Auto) (0.0-0.8) # Baso # (Auto) (0.0-0.2) # Sodium 135 (135-145) mmol/L Potassium 3.7 D (3.5-5.3) mmol/L Chloride 103 D (100-110) mmol/L Carbon Dioxide 20 L (21-32) mmol/L BUN 15 (7-18) mg/dL Creatinine 0.7 (0.55-1.02) mg/dL Est Cr Clr Drug Dosing 65.40 mL/min Estimated GFR (MDRD) > 60 (>60) BUN/Creatinine Ratio 21.4 H (9-20) Glucose 213 H D (80-116) mg/dL POC Glucose 227 H (80-116) mg/dL Hemoglobin A1c (<5.7) % Calcium 8.7 (8.6-10.2) mg/dL Total Bilirubin 0.4 (0.1-1.3) mg/dL AST 20 D (5-25) IU/L ALT 20 D (12-36) U/L Alkaline Phosphatase 119 H (56-112) IU/L Total Protein 7.1 (6.0-8.0) g/dL Albumin 3.1 L (3.2-4.6) g/dL Globulin 4.0 g/dL Albumin/Globulin Ratio 0.8 Triglycerides 342 H (15-150) mg/dL Cholesterol 213 H (50-200) mg/dL LDL Cholesterol Direct 127 (60-130) mg/dL HDL Cholesterol 38 L (40-75) mg/dL Cholesterol/HDL Ratio 5.6 H (0-5) Urine Color (YELLOW) Urine Appearance (CLEAR) Urine pH (5.0-6.5) Ur Specific [place] (1.010-1.025) Urine Protein (NEGATIVE) mg/dL Urine Glucose (UA) (NORMAL) mg/dL Urine Ketones (NEGATIVE) mg/dL Urine Occult Blood (NEGATIVE) Urine Nitrite (NEGATIVE) Urine Bilirubin (NEGATIVE) Urine Urobilinogen (NEGATIVE) mg/dL Ur Leukocyte Esterase (NEGATIVE) Urine RBC (0-5) Urine WBC (0-5) Ur Squamous Epith Cells (NS,R,O) Urine Bacteria (NS) Med Orders - Current: Current Medications Acetaminophen (Tylenol) 650 mg PO Q4H PRN PRN Reason: FEVER/PAIN Acetaminophen (Tylenol Extra Strength) 1,000 mg PO TID [facility] Last Admin: 09/22/19 21:45 Dose: 1,000 mg Albuterol (Ventolin Hfa) 0 gm INH Q4H PRN PRN Reason: SHORTNESS OF BREATH Albuterol/Ipratropium (Duoneb 3.0-0.5 Mg/3 Ml) 3 ml NEB QIDRT [facility] Last Admin: 09/23/19 06:03 Dose: 3 ml Amlodipine Besylate (Norvasc) 10 mg PO DAILY [facility] Aspirin (Aspirin) 81 mg PO DAILY [facility] Azithromycin (Zithromax) 250 mg PO DAILY [facility] Stop: 09/28/19 09:01 Baclofen (Lioresal) 15 mg PO TID [facility] Last Admin: 09/22/19 21:47 Dose: 15 mg Bisacodyl (Dulcolax) 10 mg RECTAL Q3D PRN PRN Reason: Constipation Celecoxib (Celebrex) 200 mg PO DAILY [facility] Doxycycline Hyclate (Vibra-Tabs) 100 mg PO BID [facility] Last Admin: 09/22/19 21:46 Dose: 100 mg Duloxetine HCl (Cymbalta) 60 mg PO BID [facility] Last Admin: 09/22/19 21:42 Dose: 60 mg Enoxaparin Sodium (Lovenox) 40 mg SUBCUT Q24H [facility] Last Admin: 09/22/19 18:00 Dose: 40 mg Guaifenesin (Robitussin) 200 mg PO Q4H PRN PRN Reason: Cough Last Admin: 09/22/19 22:40 Dose: 200 mg Sodium Chloride (Normal Saline) 1,000 mls @ 125 mls/hr IV ASDIRECTED [facility] Last Admin: 09/23/19 04:52 Dose: 125 mls/hr Insulin Glargine (Lantus Solostar) 20 units SUBCUT DAILY [facility] Last Admin: 09/22/19 18:10 Dose: 20 units Insulin Human Lispro (Humalog) 0 unit SUBCUT Q4H [facility]; Protocol Last Admin: 09/23/19 06:00 Dose: 3 units Losartan Potassium (Cozaar) 100 mg PO DAILY [facility] Magnesium Hydroxide (Milk Of Magnesia) 30 ml PO DAILY PRN PRN Reason: Constipation Nicotine (Habitrol) 21 mg TRDERM Q24H [facility] (Cholecalciferol ( Vitamin D3) [Vitamin D3] 2,000 Units)*Pt Own Med* 2,000 units PO DAILY [facility] (Clonidine Hcl [ Clonidine Hcl] 0.2 Mg)*Pt Own Med* 0.2 mg PO BID [facility] Last Admin: 09/22/19 21:41 Dose: 0.2 mg (Fluticasone Propionate [Flonase Allergy Relief] 1 Leroy)*Pt Own Med* 1 spray NASBOTH BID [facility] Last Admin: 09/22/19 21:43 Dose: 1 spray (Gabapentin [ Neurontin] 800 Mg)* Pt Own Med* 800 mg PO TID [facility] Last Admin: 09/22/19 21:43 Dose: 800 mg (Loperamide Hcl [ Imodium A-D] 2 Mg)* Pt Own Med* 2 mg PO ASDIRECTED PRN PRN Reason: Diarrhea [Mylanta Maximum Strength ] *Pt Own Med* 10 ml PO QID PRN PRN Reason: Indigestion [Women's 50 Plus Multivit ] *Pt Own Med* 1 each PO DAILY [facility] (Nystatin [Nystatin] ()*Pt Own Med*) 1 applic TOP TID PRN PRN Reason: Rash (Omeprazole [ Omeprazole] 20 Mg)* Pt Own Med* 20 mg PO 1800 [facility] Last Admin: 09/22/19 21:49 Dose: 20 mg (Sofosbuvir/Velpatasvir [ Sofosbuvir- Velpatasvir 400-100] )*Pt Own Med* 1 each PO DAILY [facility] Senna/Docusate Sodium (Senna Plus) 1 tab PO BID [facility] Last Admin: 09/22/19 21:44 Dose: 1 tab Sodium Chloride (Saline Flush) 10 ml FLUSH ASDIRECTED PRN PRN Reason: Keep Vein Open Last Admin: 09/22/19 16:13 Dose: 10 ml Tramadol HCl (Ultram) 50 mg PO Q6H PRN PRN Reason: Pain Last Admin: 09/23/19 05:49 Dose: 50 mg Triamcinolone Acetonide (Triamcinolone Acetonide 0.1% Crm) 0 gm TOP TID PRN PRN Reason: Rash Discontinued Medications Azithromycin (Zithromax) 250 mg PO DAILY [facility] Stop: 09/27/19 09:01 Azithromycin (Zithromax) 500 mg PO ONETIME ONE Stop: 09/22/19 17:46 Last Admin: 09/22/19 18:08 Dose: 500 mg Guaifenesin (Robitussin) 200 mg PO Q4H PRN PRN Reason: Cough Guaifenesin (Robitussin) 200 mg PO Q4H PRN PRN Reason: Cough Sodium Chloride (Normal Saline) 1,000 mls @ 250 mls/hr IV ASDIRECTED [facility] Last Admin: 09/22/19 16:00 Dose: 250 mls/hr Sodium Chloride (Normal Saline) 1,000 mls @ 125 mls/hr IV ASDIRECTED [facility] Insulin Human Lispro (Humalog) 0 unit SUBCUT TIDMEALS [facility]; Protocol Insulin Human Lispro (Humalog) Confirm Administered Dose 300 unit SUBCUT .STK- MED ONE Stop: 09/22/19 18:07 Last Admin: 09/22/19 20:08 Dose: Not Given Insulin Human Regular (Humulin R) 10 unit IV ONETIME ONE Stop: 09/22/19 15:03 Last Admin: 09/22/19 15:16 Dose: 10 unit Nicotine (Habitrol) 21 mg TRDERM DAILY [facility] Last Admin: 09/22/19 20:53 Dose: 21 mg - Exam General: Alert, Oriented, Cooperative Lungs: Clear to Auscultation, Normal Respiratory Effort Cardiovascular: Regular Rate, Regular Rhythm, No Murmurs Sepsis Event Note - Evaluation Sepsis Screening Result: No Definite Risk - Focused Exam Vital Signs: Vital Signs Temp Pulse Resp BP Pulse Ox 09/23/19 06:03 92 09/23/19 04:00 97.8 F 92 20 146/68 H 96 09/22/19 23:31 98.2 F 93 20 154/68 H 94 L 09/22/19 22:00 92 Date Exam was Performed: 09/23/19 Time Exam was Performed: 08:33 - Problem List & Annotations (1) Hyperglycemia SNOMED Code(s): 58049002 Code(s): R73.9 - HYPERGLYCEMIA, UNSPECIFIED Status: Acute Current Visit: Yes (2) Type 2 diabetes mellitus SNOMED Code(s): 99254504 Code(s): E11.9 - TYPE 2 DIABETES MELLITUS WITHOUT COMPLICATIONS Status: Acute Current Visit: Yes Qualifiers: Diabetes mellitus snf insulin use: without company doctor use Diabetes mellitus complication status: with hyperglycemia Qualified Code(s): E11.65 - Type 2 diabetes mellitus with hyperglycemia Annotation/Comment:: Admit to Observation, hospitalist to see. (3) Smoking SNOMED Code(s): 50956069 Code(s): F17.200 - NICOTINE DEPENDENCE, UNSPECIFIED, UNCOMPLICATED Status: Acute Current Visit: Yes (4) Bronchitis SNOMED Code(s): 42858435 Code(s): J40 - BRONCHITIS, NOT SPECIFIED ACUTE OR CHRONIC Status: Acute Current Visit: Yes (5) COPD (chronic obstructive pulmonary disease) SNOMED Code(s): 59221169 Code(s): J44.9 - CHRONIC OBSTRUCTIVE PULMONARY DISEASE, UNSPECIFIED Status : Acute Current Visit: Yes (6) Paralysis SNOMED Code(s): 14937425 Code(s): G83.9 - PARALYTIC SYNDROME, UNSPECIFIED Status: Acute Current Visit: Yes (7) Palliative care status SNOMED Code(s): 920828315 Code(s): Z51.5 - ENCOUNTER FOR PALLIATIVE CARE Status: Acute Current Visit: Yes - Problem List Review Problem List Initiated/Reviewed/Updated: Yes - My Orders Last 24 Hours: My Active Orders 09/22/19 17:11 Acetaminophen [Tylenol] 650 mg PO Q4H PRN Albuterol [Ventolin HFA] 0 gm INH Q4H PRN Loperamide HCl [Imodium A-D] 2 mg PO ASDIRECTED PRN Mag Hydrox/Aluminum Hyd/Simeth [Mylanta Maximum Strength Liq] 10 ml PO QID PRN Magnesium Hydroxide [Milk of Magnesia] 30 ml PO DAILY PRN Nystatin [Nystatin] 1 applic TOP TID PRN Triamcinolone Acetonide [Triamcinolone Acetonide 0.1% Crm] 0 gm TOP TID PRN bisacodyL [Dulcolax] 10 mg RECTAL Q3D PRN 09/22/19 17:21 Admission Status [Patient Status] [ADT] Routine traMADol [Ultram] 50 mg PO Q6H PRN 09/22/19 17:30 Insulin Glarg,Human.Rec.Analog [LantUS Solostar] 20 units SUBCUT DAILY 09/22/19 18:00 Enoxaparin [Lovenox] 40 mg SUBCUT Q24H Insulin Lispro [HumaLOG] See Protocol SUBCUT Q4H Omeprazole [Omeprazole] 20 mg PO 1800 09/22/19 20:00 Sodium Chloride 0.9% [Normal Saline] 1,000 ml IV ASDIRECTED 09/22/19 21:00 Acetaminophen [Tylenol Extra Strength] 1,000 mg PO TID Baclofen [Lioresal] 15 mg PO TID DULoxetine [Cymbalta] 60 mg PO BID Docusate Sodium/Sennosides [Senna Plus] 1 tab PO BID Doxycycline [Vibra-Tabs] 100 mg PO BID Fluticasone Propionate [Flonase Allergy Relief] 1 spray NASBOTH BID Gabapentin [Neurontin] 800 mg PO TID cloNIDine HCL [Clonidine HCl] 0.2 mg PO BID 09/22/19 23:00 guaiFENesin [Robitussin] 200 mg PO Q4H PRN 09/23/19 05:11 GLYCOSYLATED HEMOGLOBIN,HGBA1C [CHEM] AM 09/23/19 06:00 MICROALB/CREAT RATIO, RANDM UR Routine 09/23/19 09:00 Aspirin 81 mg PO DAILY Azithromycin [Zithromax] 250 mg PO DAILY Celecoxib [CeleBREX] 200 mg PO DAILY Cholecalciferol (Vitamin D3) [Vitamin D3] 2,000 units PO DAILY Losartan [Cozaar] 100 mg PO DAILY Mv-Mn/Folic AC/Calcium/Vit K1 [Women's 50 Plus Multivit Tab] 1 each PO DAILY Sofosbuvir/Velpatasvir [Sofosbuvir-Velpatasvir 400-100] 1 each PO DAILY amLODIPine [Norvasc] 10 mg PO DAILY 09/23/19 17:00 Nicotine [Habitrol] 21 mg TRDERM Q24H - Plan Plan:: 1. Discharge back to the [facility] 2. Lantus 20 units a day at the [facility] plus metformin 500 mg twice a day. 10 units of Humalog for lunch sugars greater than 350 3 times a day. 3. Follow-up next week with the cake tester, dietitian, RN health head tennis coach and her primary provider to adjust her medications. 5. Diabetic diet
--- NOTE | 2019-09-23 08:47 | PCM.DCSUM1 ---
Discharge Summary - Hospital Course Free Text/Narrative:: Hospital course-patient was admitted and given units of Lantus and sliding scale every 4 hours. She was given 20/50 cc an hour of IV fluids and 125 mL an hour. Blood sugars came down into the 200s nicely. The next morning she was switched over to Lantus plus metformin with Humalog for breakthrough blood sugars greater 350. She was hyponatremic and that was corrected and her any was mildly elevated and I was corrected by the next day. Patient will be discharged back to the [facility] home and follow-up with her primary provider to continue diabetes care. She had some back pain is chronically treated with tramadol. 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 She has some labs then over week ago and her blood sugars 285. This the first time her sugars ever been up and nobody called her back to follow-up. She was getting an appointment with her nurse practitioner but an upcoming here. They checked her blood sugar was flexed over 680 and she was sent here. She denies fevers, chills, chest pain. She is a smoker and she is she has some wheezing some coughing. 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 Qualifiers: Diabetes mellitus retirement insulin use: without retirement use Diabetes mellitus complication status: with hyperglycemia Qualified Code(s): E11.65 - Type 2 diabetes mellitus with hyperglycemia (3) Smoking SNOMED Code(s): 56772666 ICD Code: F17.200 - NICOTINE DEPENDENCE, UNSPECIFIED, UNCOMPLICATED Status : Acute Current Visit: Yes (4) Bronchitis SNOMED Code(s): 74334236 ICD Code: J40 - BRONCHITIS, NOT SPECIFIED ACUTE OR CHRONIC Status: Acute Current Visit: Yes (5) COPD (chronic obstructive pulmonary disease) SNOMED Code(s): 07210817 ICD Code: J44.9 - CHRONIC OBSTRUCTIVE PULMONARY DISEASE, UNSPECIFIED Status : Acute Current Visit: Yes (6) Paralysis SNOMED Code(s): 56922559 ICD Code: G83.9 - PARALYTIC SYNDROME, UNSPECIFIED Status: Acute Current Visit: Yes (7) Palliative care status SNOMED Code(s): 667119576 ICD Code: Z51.5 - ENCOUNTER FOR PALLIATIVE CARE Status: Acute Current Visit: Yes (8) Hyponatremia SNOMED Code(s): 40769344 ICD Code: E87.1 - HYPO-OSMOLALITY AND HYPONATREMIA Status: Acute Current Visit: Yes (9) Acute kidney injury SNOMED Code(s): 70631376, 80705740 ICD Code: N17.9 - ACUTE KIDNEY FAILURE, UNSPECIFIED Status: Acute Current Visit: Yes - Patient Summary/Data Consults: Consultations 09/22/19 14:58 Consult to W[employer] Dr[employer] Operator [CONS] Routine Comment: Physician Instructions: Quantity: - Patient Instructions Diet: Diabetic Diet Activity, Other: wheelchair Driving: May Drive Today Showering/Bathing: May Shower Notify Provider of: Nausea and/or Vomiting Other/Special Instructions: 1. Recheck next week with the primary provider ( Shayla Buchanan), RN health onsite health coach, special educator and dietitian. 2. Lantus 20 units daily. 3. A Z-Dillon and metformin 500 mg twice a day. 4. Humalog 10 units 3 times a day with meals with a blood sugar greater than 350. 5. Accu-Cheks 3 times a day with meals - Discharge Plan *PRESCRIPTION DRUG MONITORING PROGRAM REVIEWED*: Not Applicable *COPY OF PRESCRIPTION DRUG MONITORING REPORT IN PATIENT BOUCHRA: Not Applicable Prescriptions/Med Rec: Azithromycin [Zithromax] 250 mg PO DAILY #4 tablet Insulin Glarg,Human.Rec.Analog [Lantus Solostar] 20 units SUBCUT DAILY #1 pen Insulin Lispro [Humalog] 10 unit SUBCUT TID #1 pen Home Medications: Home Meds Acetaminophen 1,000 mg PO TID 09/22/19 [History] Acetaminophen 650 mg PO Q4H PRN 09/22/19 [History] Albuterol Sulfate [Albuterol Sulfate Hfa] 1 puff IH Q4H PRN 09/22/19 [History] Aspirin 81 mg PO DAILY 09/22/19 [History] Baclofen 15 mg PO TID 09/22/19 [History] Bisacodyl [Laxative Suppository] 10 mg RC Q3D PRN 09/22/19 [History] Cholecalciferol (Vitamin D3) [Vitamin D3] 2,000 units PO DAILY 09/22/19 [History ] DULoxetine [Cymbalta] 60 mg PO BID 09/22/19 [History] Doxycycline Hyclate 100 mg PO BID 09/22/19 [History] Fluticasone Propionate [Flonase Allergy Relief] 1 spray NASBOTH BID 09/22/19 [ History] Gabapentin [Neurontin] 800 mg PO TID 09/22/19 [History] Loperamide HCl [Imodium A-D] 2 mg PO ASDIRECTED PRN 09/22/19 [History] Losartan [Cozaar] 100 mg PO DAILY 09/22/19 [History] Mag Hydrox/Aluminum Hyd/Simeth [Mylanta Maximum Strength Liq] 10 ml PO QID PRN 09/22/19 [History] Magnesium Hydroxide [Milk of Magnesia] 30 ml PO DAILY PRN 09/22/19 [History] Mv-Mn/Folic AC/Calcium/Vit K1 [Women's 50 Plus Multivit Tab] 1 each PO DAILY 07/08 [History] Nystatin 1 applic TOP TID PRN 09/22/19 [History] Omeprazole 20 mg PO 1800 09/22/19 [History] Sennosides/Docusate Sodium [Senna-S] 1 tab PO BID 09/22/19 [History] Sofosbuvir/Velpatasvir [Sofosbuvir-Velpatasvir 400-100] 1 each PO DAILY [History] Triamcinolone Acetonide [Triamcinolone Acetonide 0.1% Crm] 1 applic TOP TID PRN 09/22/19 [History] amLODIPine Besylate [Amlodipine Besylate] 10 mg PO DAILY 09/22/19 [History] cloNIDine HCL [Clonidine HCl] 0.2 mg PO BID 09/22/19 [History] guaiFENesin 200 mg PO Q4H PRN 09/22/19 [History] Azithromycin [Zithromax] 250 mg PO DAILY #4 tablet 09/23/19 [Rx] Celecoxib [CeleBREX] 200 mg PO DAILY 09/23/19 [History] Celecoxib [CeleBREX] 200 mg PO DAILY cap 09/23/19 [Rx] Insulin Glarg,Human.Rec.Analog [Lantus Solostar] 20 units SUBCUT DAILY #1 pen [Rx] Insulin Lispro [Humalog] 10 unit SUBCUT TID #1 pen 09/23/19 [Rx] Patient Handouts: Diabetes Mellitus and Foot Care, Coping with Quitting Smoking , Fall Prevention in Hospitals, Adult, Venous Thromboembolism Prevention Forms: ED Department Discharge Referrals: Benita Fulton PA-C [Primary Care Provider] - - Discharge Summary/Plan Comment DC Time >30 min.: No - Patient Data Vitals - Most Recent: Last Vital Signs Temp 97.8 F 09/23/19 04:00 Pulse 92 09/23/19 06:03 Resp 20 09/23/19 04:00 BP 146/68 H 09/23/19 04:00 Pulse Ox 96 09/23/19 04:00 Weight - Most Recent: 221 lb 9.6 oz I&O - Last 24 hours: Intake & Output 09/22/19 09/23/19 09/23/19 22:59 06:59 14:59 Intake Total 400 2044 Balance 400 2044 Lab Results - Last 24 hrs: Laboratory Results - last 24 hr 09/22/19 09/22/19 09/22/19 Range/Units 13:45 13:45 13:45 WBC 7.9 (4.5-12.0) X10-3/uL RBC 4.40 (3.23-5.20) x10(6)uL Hgb 13.8 (11.5-15.5) g/dL Hct 41.9 (30.0-51.3) % MCV 95.2 (80-96) fL MCH 31.3 (27.7-33.6) pg MCHC 32.9 (32.2-35.4) g/dL RDW 11.7 (11.5-15.5) % Plt Count 191 (125-369) X10(3)uL MPV 9.1 (7.4-10.4) fL Neut % (Auto) 73.6 (46-82) % Lymph % (Auto) 18.1 (13-37) % [place] % (Auto) 5.9 (4-12) % Eos % (Auto) 1 (1.0-5.0) % Baso % (Auto) 1 (0-2) % Neut # (Auto) 5.8 (1.6-8.3) # Lymph # (Auto) 1.4 (0.6-5.0) # [place] # (Auto) 0.5 (0.0-1.3) # Eos # (Auto) 0.1 (0.0-0.8) # Baso # (Auto) 0.1 (0.0-0.2) # Sodium 130 L (135-145) mmol/L Potassium 4.7 (3.5-5.3) mmol/L Chloride 94 L (100-110) mmol/L Carbon Dioxide 28 (21-32) mmol/L BUN 22 H (7-18) mg/dL Creatinine 1.1 H (0.55-1.02) mg/dL Est Cr Clr Drug Dosing 41.62 mL/min Estimated GFR (MDRD) 50 L (>60) BUN/Creatinine Ratio 20.0 (9-20) Glucose 638 H* (80-116) mg/dL POC Glucose (80-116) mg/dL Hemoglobin A1c 8.8 H (<5.7) % Calcium 9.6 (8.6-10.2) mg/dL Total Bilirubin 0.4 (0.1-1.3) mg/dL AST 15 (5-25) IU/L ALT 24 (12-36) U/L Alkaline Phosphatase 170 H (56-112) IU/L Total Protein 7.9 (6.0-8.0) g/dL Albumin 3.6 (3.2-4.6) g/dL Globulin 4.3 g/dL Albumin/Globulin Ratio 0.8 Triglycerides (15-150) mg/dL Cholesterol (50-200) mg/dL LDL Cholesterol Direct (60-130) mg/dL HDL Cholesterol (40-75) mg/dL Cholesterol/HDL Ratio (0-5) Urine Color (YELLOW) Urine Appearance (CLEAR) Urine pH (5.0-6.5) Ur Specific Mckenna (1.010-1.025) Urine Protein (NEGATIVE) mg/dL Urine Glucose (UA) (NORMAL) mg/dL Urine Ketones (NEGATIVE) mg/dL Urine Occult Blood (NEGATIVE) Urine Nitrite (NEGATIVE) Urine Bilirubin (NEGATIVE) Urine Urobilinogen (NEGATIVE) mg/dL Ur Leukocyte Esterase (NEGATIVE) Urine RBC (0-5) Urine WBC (0-5) Ur Squamous Epith Cells (NS,R,O) Urine Bacteria (NS) 09/22/19 09/22/19 09/22/19 Range/Units 14:22 17:40 22:04 WBC (4.5-12.0) X10-3/uL RBC (3.23-5.20) x10(6)uL Hgb (11.5-15.5) g/dL Hct (30.0-51.3) % MCV (80-96) fL MCH (27.7-33.6) pg MCHC (32.2-35.4) g/dL RDW (11.5-15.5) % Plt Count (125-369) X10(3)uL MPV (7.4-10.4) fL Neut % (Auto) (46-82) % Lymph % (Auto) (13-37) % [place] % (Auto) (4-12) % Eos % (Auto) (1.0-5.0) % Baso % (Auto) (0-2) % Neut # (Auto) (1.6-8.3) # Lymph # (Auto) (0.6-5.0) # [place] # (Auto) (0.0-1.3) # Eos # (Auto) (0.0-0.8) # Baso # (Auto) (0.0-0.2) # Sodium (135-145) mmol/L Potassium (3.5-5.3) mmol/L Chloride (100-110) mmol/L Carbon Dioxide (21-32) mmol/L BUN (7-18) mg/dL Creatinine (0.55-1.02) mg/dL Est Cr Clr Drug Dosing mL/min Estimated GFR (MDRD) (>60) BUN/Creatinine Ratio (9-20) Glucose (80-116) mg/dL POC Glucose 314 H 291 H (80-116) mg/dL Hemoglobin A1c (<5.7) % Calcium (8.6-10.2) mg/dL Total Bilirubin (0.1-1.3) mg/dL AST (5-25) IU/L ALT (12-36) U/L Alkaline Phosphatase (56-112) IU/L Total Protein (6.0-8.0) g/dL Albumin (3.2-4.6) g/dL Globulin g/dL Albumin/Globulin Ratio Triglycerides (15-150) mg/dL Cholesterol (50-200) mg/dL LDL Cholesterol Direct (60-130) mg/dL HDL Cholesterol (40-75) mg/dL Cholesterol/HDL Ratio (0-5) Urine Color Yellow (YELLOW) Urine Appearance Clear (CLEAR) Urine pH 5.0 (5.0-6.5) Ur Specific Mckenna 1.010 (1.010-1.025) Urine Protein Negative (NEGATIVE) mg/dL Urine Glucose (UA) >1000 H (NORMAL) mg/dL Urine Ketones Negative (NEGATIVE) mg/dL Urine Occult Blood Negative (NEGATIVE) Urine Nitrite Negative (NEGATIVE) Urine Bilirubin Negative (NEGATIVE) Urine Urobilinogen Normal (NEGATIVE) mg/dL Ur Leukocyte Esterase Negative (NEGATIVE) Urine RBC 0-5 (0-5) Urine WBC 0-5 (0-5) Ur Squamous Epith Cells Occasional (NS,R,O) Urine Bacteria Rare H (NS) 09/23/19 09/23/19 Range/Units 02:12 06:35 WBC (4.5-12.0) X10-3/uL RBC (3.23-5.20) x10(6)uL Hgb (11.5-15.5) g/dL Hct (30.0-51.3) % MCV (80-96) fL MCH (27.7-33.6) pg MCHC (32.2-35.4) g/dL RDW (11.5-15.5) % Plt Count (125-369) X10(3)uL MPV (7.4-10.4) fL Neut % (Auto) (46-82) % Lymph % (Auto) (13-37) % [place] % (Auto) (4-12) % Eos % (Auto) (1.0-5.0) % Baso % (Auto) (0-2) % Neut # (Auto) (1.6-8.3) # Lymph # (Auto) (0.6-5.0) # [place] # (Auto) (0.0-1.3) # Eos # (Auto) (0.0-0.8) # Baso # (Auto) (0.0-0.2) # Sodium 135 (135-145) mmol/L Potassium 3.7 D (3.5-5.3) mmol/L Chloride 103 D (100-110) mmol/L Carbon Dioxide 20 L (21-32) mmol/L BUN 15 (7-18) mg/dL Creatinine 0.7 (0.55-1.02) mg/dL Est Cr Clr Drug Dosing 65.40 mL/min Estimated GFR (MDRD) > 60 (>60) BUN/Creatinine Ratio 21.4 H (9-20) Glucose 213 H D (80-116) mg/dL POC Glucose 227 H (80-116) mg/dL Hemoglobin A1c (<5.7) % Calcium 8.7 (8.6-10.2) mg/dL Total Bilirubin 0.4 (0.1-1.3) mg/dL AST 20 D (5-25) IU/L ALT 20 D (12-36) U/L Alkaline Phosphatase 119 H (56-112) IU/L Total Protein 7.1 (6.0-8.0) g/dL Albumin 3.1 L (3.2-4.6) g/dL Globulin 4.0 g/dL Albumin/Globulin Ratio 0.8 Triglycerides 342 H (15-150) mg/dL Cholesterol 213 H (50-200) mg/dL LDL Cholesterol Direct 127 (60-130) mg/dL HDL Cholesterol 38 L (40-75) mg/dL Cholesterol/HDL Ratio 5.6 H (0-5) Urine Color (YELLOW) Urine Appearance (CLEAR) Urine pH (5.0-6.5) Ur Specific Mckenna (1.010-1.025) Urine Protein (NEGATIVE) mg/dL Urine Glucose (UA) (NORMAL) mg/dL Urine Ketones (NEGATIVE) mg/dL Urine Occult Blood (NEGATIVE) Urine Nitrite (NEGATIVE) Urine Bilirubin (NEGATIVE) Urine Urobilinogen (NEGATIVE) mg/dL Ur Leukocyte Esterase (NEGATIVE) Urine RBC (0-5) Urine WBC (0-5) Ur Squamous Epith Cells (NS,R,O) Urine Bacteria (NS) Med Orders - Current: Current Medications Acetaminophen (Tylenol) 650 mg PO Q4H PRN PRN Reason: FEVER/PAIN Acetaminophen (Tylenol Extra Strength) 1,000 mg PO TID [facility] Last Admin: 09/22/19 21:45 Dose: 1,000 mg Albuterol (Ventolin Hfa) 0 gm INH Q4H PRN PRN Reason: SHORTNESS OF BREATH Albuterol/Ipratropium (Duoneb 3.0-0.5 Mg/3 Ml) 3 ml NEB QIDRT [facility] Last Admin: 09/23/19 06:03 Dose: 3 ml Amlodipine Besylate (Norvasc) 10 mg PO DAILY [facility] Aspirin (Aspirin) 81 mg PO DAILY [facility] Azithromycin (Zithromax) 250 mg PO DAILY [facility] Stop: 09/28/19 09:01 Baclofen (Lioresal) 15 mg PO TID [facility] Last Admin: 09/22/19 21:47 Dose: 15 mg Bisacodyl (Dulcolax) 10 mg RECTAL Q3D PRN PRN Reason: Constipation Celecoxib (Celebrex) 200 mg PO DAILY [facility] Doxycycline Hyclate (Vibra-Tabs) 100 mg PO BID [facility] Last Admin: 09/22/19 21:46 Dose: 100 mg Duloxetine HCl (Cymbalta) 60 mg PO BID [facility] Last Admin: 09/22/19 21:42 Dose: 60 mg Enoxaparin Sodium (Lovenox) 40 mg SUBCUT Q24H [facility] Last Admin: 09/22/19 18:00 Dose: 40 mg Guaifenesin (Robitussin) 200 mg PO Q4H PRN PRN Reason: Cough Last Admin: 09/22/19 22:40 Dose: 200 mg Sodium Chloride (Normal Saline) 1,000 mls @ 125 mls/hr IV ASDIRECTED [facility] Last Admin: 09/23/19 04:52 Dose: 125 mls/hr Insulin Glargine (Lantus Solostar) 20 units SUBCUT DAILY [facility] Last Admin: 09/22/19 18:10 Dose: 20 units Insulin Human Lispro (Humalog) 0 unit SUBCUT Q4H [facility]; Protocol Last Admin: 09/23/19 06:00 Dose: 3 units Losartan Potassium (Cozaar) 100 mg PO DAILY [facility] Magnesium Hydroxide (Milk Of Magnesia) 30 ml PO DAILY PRN PRN Reason: Constipation Nicotine (Habitrol) 21 mg TRDERM Q24H [facility] (Cholecalciferol ( Vitamin D3) [Vitamin D3] 2,000 Units)*Pt Own Med* 2,000 units PO DAILY [facility] (Clonidine Hcl [ Clonidine Hcl] 0.2 Mg)*Pt Own Med* 0.2 mg PO BID [facility] Last Admin: 09/22/19 21:41 Dose: 0.2 mg (Fluticasone Propionate [Flonase Allergy Relief] 1 Bryson)*Pt Own Med* 1 spray NASBOTH BID [facility] Last Admin: 09/22/19 21:43 Dose: 1 spray (Gabapentin [ Neurontin] 800 Mg)* Pt Own Med* 800 mg PO TID [facility] Last Admin: 09/22/19 21:43 Dose: 800 mg (Loperamide Hcl [ Imodium A-D] 2 Mg)* Pt Own Med* 2 mg PO ASDIRECTED PRN PRN Reason: Diarrhea [Mylanta Maximum Strength ] *Pt Own Med* 10 ml PO QID PRN PRN Reason: Indigestion [Women's 50 Plus Multivit ] *Pt Own Med* 1 each PO DAILY [facility] (Nystatin [Nystatin] ()*Pt Own Med*) 1 applic TOP TID PRN PRN Reason: Rash (Omeprazole [ Omeprazole] 20 Mg)* Pt Own Med* 20 mg PO 1800 [facility] Last Admin: 09/22/19 21:49 Dose: 20 mg (Sofosbuvir/Velpatasvir [ Sofosbuvir- Velpatasvir 400-100] )*Pt Own Med* 1 each PO DAILY [facility] Senna/Docusate Sodium (Senna Plus) 1 tab PO BID [facility] Last Admin: 09/22/19 21:44 Dose: 1 tab Sodium Chloride (Saline Flush) 10 ml FLUSH ASDIRECTED PRN PRN Reason: Keep Vein Open Last Admin: 09/22/19 16:13 Dose: 10 ml Tramadol HCl (Ultram) 50 mg PO Q6H PRN PRN Reason: Pain Last Admin: 09/23/19 05:49 Dose: 50 mg Triamcinolone Acetonide (Triamcinolone Acetonide 0.1% Crm) 0 gm TOP TID PRN PRN Reason: Rash Discontinued Medications Azithromycin (Zithromax) 250 mg PO DAILY [facility] Stop: 09/27/19 09:01 Azithromycin (Zithromax) 500 mg PO ONETIME ONE Stop: 09/22/19 17:46 Last Admin: 09/22/19 18:08 Dose: 500 mg Guaifenesin (Robitussin) 200 mg PO Q4H PRN PRN Reason: Cough Guaifenesin (Robitussin) 200 mg PO Q4H PRN PRN Reason: Cough Sodium Chloride (Normal Saline) 1,000 mls @ 250 mls/hr IV ASDIRECTED [facility] Last Admin: 09/22/19 16:00 Dose: 250 mls/hr Sodium Chloride (Normal Saline) 1,000 mls @ 125 mls/hr IV ASDIRECTED [facility] Insulin Human Lispro (Humalog) 0 unit SUBCUT TIDMEALS [facility]; Protocol Insulin Human Lispro (Humalog) Confirm Administered Dose 300 unit SUBCUT .STK- MED ONE Stop: 09/22/19 18:07 Last Admin: 09/22/19 20:08 Dose: Not Given Insulin Human Regular (Humulin R) 10 unit IV ONETIME ONE Stop: 09/22/19 15:03 Last Admin: 09/22/19 15:16 Dose: 10 unit Nicotine (Habitrol) 21 mg TRDERM DAILY [facility] Last Admin: 09/22/19 20:53 Dose: 21 mg
[2019-09-23] MEDS ORDERED: SOFOSBUVIR PO SCH (09:00)
[2019-09-23] MEDS ORDERED: amLODIPine 10 MG Tab*PT OWN MED PO SCH (09:00)
[2019-09-23] MEDS ORDERED: VELPATASVIR PO SCH (09:00)
[2019-09-23] MEDS ORDERED: CELECOXIB 200 MG PO SCH (09:00)
[2019-09-23] MEDS ORDERED: Azithromycin 250 MG Tab PO SCH (09:00)
[2019-09-23] MEDS ORDERED: Aspirin 81 MG Tab.Chew*PT OWN MED PO SCH (09:00)
[2019-09-23] MEDS ORDERED: CHOLECALCIFEROL 2000 UNIT PO SCH (09:00)
[2019-09-23] MEDS: BACLOFEN 10 MG PO SCH ×2 (09:09→13:41)
[2019-09-23] MEDS: DULoxetine 60 MG Cap*PT OWN MED PO SCH (09:13)
[2019-09-23] MEDS: Insulin Glargine,Human Rec. Analog 100 Units/ML 3 ML Pen SUBCUT SCH (09:14)
[2019-09-23] MEDS: [UNRECOGNIZED DRUG - REMARK] NASBOTH SCH (09:14)
[2019-09-23] MEDS: ACETAMINOPHEN 500 MG PO SCH ×2 (09:16→13:41)
[2019-09-23] MEDS: DOCUSATE SODIUM PO SCH (09:16)
[2019-09-23] MEDS: SENNOSIDES PO SCH (09:16)
[2019-09-23] MEDS: DOXYCYCLINE 100 MG PO SCH (09:17)
[2019-09-23] MEDS ORDERED: Nicotine 21 MG/24 Hr Patch TRDERM SCH (17:00)
== END 2019-09-23 14:10 ==
LOC: FB.ED 13:08 → FB.MS 14:57
PROVIDERS: ADMIT Family Medicine; ATTEND Family Medicine
DX: E11.65 Type 2 diabetes mellitus with hyperglycemia (principal); I10 Essential (primary) hypertension; F17.210 Nicotine dependence, cigarettes, uncomplicated; J44.9 Chronic obstructive pulmonary disease, unspecified; G83.9 Paralytic syndrome, unspecified; N17.9 Acute kidney failure, unspecified; E87.1 Hypo-osmolality and hyponatremia; Z51.5 Encounter for palliative care; Z79.82 Long term (current) use of aspirin; Z79.899 Other long term (current) drug therapy; Z79.51 Long term (current) use of inhaled steroids; Z79.4 Long term (current) use of insulin
CPT/HCPCS: 36415; 71045; 80053; 80061; 81001; 82043; 82570; 82962; 83036; 85025; 94640; 96360; 96361; 96372; 99285; A9270; G0378; J1650; J1815; J7030; J7620-GY

== ENCOUNTER 2019-11-30 06:45 | Day surgery (SDC) | payer MEDICARE, MEDICAID ==
[~2019-11-30 06:45] MED LIST: Sodium Chloride 0.9% 10 ML Syringe FLUSH PRN
[2019-11-30] MEDS ORDERED: fentaNYL 100 MCG/2 ML SDV IV ONE (06:46)
[2019-11-30] MEDS ORDERED: Midazolam 1 MG/ML 2 ML SDV IV ONE (06:46)
[2019-11-30] MEDS: Albuterol 0.083% 2.5 MG/3 ML Neb Soln NEB ONE (07:32)
[2019-11-30] MEDS: Lactated Ringers 1,000 ML IV SCH (07:34)
[2019-11-30] MEDS ORDERED: Albuterol 0.083% 2.5 MG/3 ML Neb Soln NEB ONE (08:30)
--- NOTE | 2019-12-01 11:29 | OR ---
DATE OF OPERATION: 11/30/2019 SURGEON: Sulema Barrientos MD PREOPERATIVE DIAGNOSIS: Visually significant cataract, right eye. POSTOPERATIVE DIAGNOSIS: Visually significant cataract, right eye. PROCEDURES PERFORMED: Phacoemulsification with intraocular lens placement, right eye. ASSISTANTS: None. ANESTHESIA: Local with sedation. COMPLICATIONS: None. BLOOD LOSS: None. IMPLANTS: Jv ACU0T0, 18.5 Diopter lens implanted. CDE: 1.11. DESCRIPTION OF PROCEDURE: After risks and benefits were reviewed with the patient, consent was obtained in the preoperative area, and the operative eye was marked with a surgical pen. In the preoperative area, a pledget was used to dilate the pupil consisting of a mixture of phenylephrine 10%, cyclopentolate 2%, moxifloxacin 0.5%, and bupivacaine 0.75%. The patient was taken to the operating room, where a time-out was performed, and the patient was placed under monitored anesthesia care. Topical tetracaine was used for anesthesia. The operative eye was prepped and draped for ophthalmic surgery, and the microscope was brought into position and focused. A paracentesis incision was made, followed by injection of preservative-free 1% lidocaine into the anterior chamber, followed by injection of Viscoat into the anterior chamber. A microkeratome blade was used to make a corneal limbal incision temporally. A cystotome was used to make the beginning of the capsulorrhexis, which was carried around 360 degrees in a curvilinear fashion using Utrata forceps. A Wright cannula with BSS was used to hydrodissect and hydrodelineate the nucleus. The nucleus was removed in a divide and conquer manner using phacoemulsification. Irrigation and aspiration were used to remove the remaining cortical material. Provisc was used to inflate the capsular bag, and a pre-loaded Jv ACU0T0, 18.5 diopter lens, serial number [id number] was injected into the capsular bag. A Sinskey hook was used to position and center the lens. Next, irrigation and aspiration was used to remove any remaining viscoelastic and cortical material from the anterior chamber. BSS on a cannula was used to inflate the anterior chamber and hydrate the wound. The wound was checked and found to be watertight. 1 mg of Moxifloxacin was injected into the anterior chamber. Drapes were removed and the eye was cleaned. A drop of brimonidine 0.15% and a drop of TobraDex was placed. The eye was shielded, and the patient was taken to the recovery room in stable condition. /[id number] JORDY/EMILIA CC: CRISTEL DUNBAR, [facility]
== END 2019-11-30 10:06 | disposition other institution (70) ==
LOC: FB.SDS 06:45
PROVIDERS: ATTEND Ophthalmology
DX: E11.36 Type 2 diabetes mellitus with diabetic cataract (principal); H25.813 Combined forms of age-related cataract, bilateral; H02.881 Meibomian gland dysfunction right upper eyelid; H02.884 Meibomian gland dysfunction left upper eyelid; H52.03 Hypermetropia, bilateral; G89.4 Chronic pain syndrome; M54.42 Lumbago with sciatica, left side; M86.60 Other chronic osteomyelitis, unspecified site; E78.5 Hyperlipidemia, unspecified; I10 Essential (primary) hypertension; E66.01 Morbid (severe) obesity due to excess calories; K21.9 Gastro-esophageal reflux disease without esophagitis; J45.909 Unspecified asthma, uncomplicated; B18.2 Chronic viral hepatitis C; E11.65 Type 2 diabetes mellitus with hyperglycemia; F17.210 Nicotine dependence, cigarettes, uncomplicated; F43.10 Post-traumatic stress disorder, unspecified; F22 Delusional disorders; F33.2 Major depressive disorder, recurrent severe without psychotic features; Z79.899 Other long term (current) drug therapy; Z79.4 Long term (current) use of insulin; Z88.9 Allergy status to unspecified drugs, medicaments and biological substances; Z91.030 Bee allergy status; Z88.8 Allergy status to other drugs, medicaments and biological substances; Z68.35 Body mass index [BMI] 35.0-35.9, adult
CPT/HCPCS: 00142-QZ; 82962; 94640; J2250; J3010; J7120; V2632

== ENCOUNTER 2019-12-14 06:45 | Day surgery (SDC) | payer MEDICARE, MEDICAID ==
[~2019-12-14 06:45] MED LIST changes: +Lactated Ringers 1,000 ML IV SCH
[2019-12-14] MEDS ORDERED: fentaNYL 100 MCG/2 ML SDV IV ONE (06:46)
[2019-12-14] MEDS ORDERED: Midazolam 1 MG/ML 2 ML SDV IV ONE (06:46)
[2019-12-14] MEDS ORDERED: acetaZOLAMIDE 500 MG Cap.ER PO ONE (08:00)
--- NOTE | 2019-12-14 09:49 | OR ---
DATE OF OPERATION: 12/14/2019 SURGEON: Sulema Barrientos MD PREOPERATIVE DIAGNOSIS: Visually significant cataract, left eye. POSTOPERATIVE DIAGNOSIS: Visually significant cataract, left eye. PROCEDURES PERFORMED: Phacoemulsification with intraocular lens placement, left eye. ASSISTANTS: None. ANESTHESIA: Local with sedation. COMPLICATIONS: None. BLOOD LOSS: None. IMPLANTS: An Jv ACU0T0, 20.0 diopter lens implanted. CDE: 0.87. DESCRIPTION OF PROCEDURE: After risks and benefits were reviewed with the patient, consent was obtained in the preoperative area, and the operative eye was marked with a surgical pen. In the preoperative area, a pledget was used to dilate the pupil consisting of a mixture of phenylephrine 10%, cyclopentolate 2%, moxifloxacin 0.5%, and bupivacaine 0.75%. The patient was taken to the operating room, where a time-out was performed, and the patient was placed under monitored anesthesia care. Topical tetracaine was used for anesthesia. The operative eye was prepped and draped for ophthalmic surgery, and the microscope was brought into position and focused. A paracentesis incision was made, followed by injection of preservative-free 1% lidocaine into the anterior chamber, followed by injection of Viscoat into the anterior chamber. A microkeratome blade was used to make a corneal limbal incision temporally. A cystotome was used to make the beginning of the capsulorrhexis, which was carried around 360 degrees in a curvilinear fashion using Utrata forceps. A Wright cannula with BSS was used to hydrodissect and hydrodelineate the nucleus. The nucleus was removed in a divide and conquer manner using phacoemulsification. Irrigation and aspiration were used to remove the remaining cortical material. Provisc was used to inflate the capsular bag, and a pre-loaded Jv ACU0T0, 20.0 diopter lens, serial number [id number] was injected into the capsular bag. A Sinskey hook was used to position and center the lens. Next, irrigation and aspiration was used to remove any remaining viscoelastic and cortical material from the anterior chamber. BSS on a cannula was used to inflate the anterior chamber and hydrate the wound. The wound was checked and found to be watertight. 1 mg of Moxifloxacin was injected into the anterior chamber. Drapes were removed and the eye was cleaned. A drop of brimonidine 0.15% and a drop of TobraDex was placed. The eye was shielded, and the patient was taken to the recovery room in stable condition. /[id number] JORDY/EMILIA CC: CRISTEL DUNBAR CNP [facility]ENTER[facility]ron
== END 2019-12-14 09:44 | disposition other institution (70) ==
LOC: FB.SDS 06:45
PROVIDERS: ATTEND Ophthalmology
DX: E11.36 Type 2 diabetes mellitus with diabetic cataract (principal); H25.812 Combined forms of age-related cataract, left eye; H02.881 Meibomian gland dysfunction right upper eyelid; H02.884 Meibomian gland dysfunction left upper eyelid; H52.03 Hypermetropia, bilateral; I10 Essential (primary) hypertension; E66.9 Obesity, unspecified; F17.210 Nicotine dependence, cigarettes, uncomplicated; F33.2 Major depressive disorder, recurrent severe without psychotic features; F22 Delusional disorders; F43.10 Post-traumatic stress disorder, unspecified; E11.65 Type 2 diabetes mellitus with hyperglycemia; B18.2 Chronic viral hepatitis C; J45.909 Unspecified asthma, uncomplicated; K21.9 Gastro-esophageal reflux disease without esophagitis; E78.5 Hyperlipidemia, unspecified; M86.60 Other chronic osteomyelitis, unspecified site; M54.42 Lumbago with sciatica, left side; M54.41 Lumbago with sciatica, right side; G89.4 Chronic pain syndrome; Z79.899 Other long term (current) drug therapy; Z79.82 Long term (current) use of aspirin; Z79.84 Long term (current) use of oral hypoglycemic drugs
CPT/HCPCS: 00142-QZ; 82962; A9270-GY; J2250; J3010; J7120; V2632